=== PATIENT | male | born 1985 | race Hispanic/Latino ===

== ENCOUNTER → 2016-10-05 | Outpatient (REF) | LOC: M LAB 14:10 | PROVIDERS: ATTEND Nurse Practitioner Adult Health | DX: Z00.00 Encounter for general adult medical examination without abnormal findings (principal) ==

== ENCOUNTER 2017-03-11 16:46 | Emergency (ER) | payer OTHER ==
[2017-03-11] MEDS: ACETAMINOPHEN 325 MG TAB PO (17:37)
== END 2017-03-11 18:27 | disposition home or self-care (01) ==
LOC: M ED 16:46
DX: S00.93XA Contusion of unspecified part of head, initial encounter (principal); S06.0X0A Concussion without loss of consciousness, initial encounter; W22.09XA Striking against other stationary object, initial encounter; Y92.59 Other trade areas as the place of occurrence of the external cause; Y93.89 Activity, other specified; Y99.0 Civilian activity done for income or pay; F17.210 Nicotine dependence, cigarettes, uncomplicated; Z98.890 Other specified postprocedural states
CPT/HCPCS: 70450

== ENCOUNTER → 2017-06-09 | Outpatient (CLI) | payer BC ==
[2017-06-09 18:38] LABS: HIV 1&2 SCREEN CENTAUR NEGATIVE (NEGATIVE)
[2017-06-09 20:12] LABS: CHLAMYDIA DNA AMPLIFICATION NEGATIVE (NEGATIVE); GC DNA AMPLIFICATION NEGATIVE (NEGATIVE)
[2017-06-13 00:07] LABS: HSV IgM TYPES 1&2 2.12 Ratio (0.00-0.90)
== END ==
LOC: M WUC 12:30
DX: Z20.2 Contact with and (suspected) exposure to infections with a predominantly sexual mode of transmission (principal)
CPT/HCPCS: 86694